=== PATIENT | female | born 1970 | race African-American/Black ===

== ENCOUNTER 2023-02-18 14:09 | Emergency (ER) | payer SELFPAY ==
--- NOTE | ~2023-02-18 | XR_ITS ---
EXAMINATION: XR chest 2V DATE: 02/18/2023 16:44 INDICATION: Shortness of breath, cough and congestion TECHNIQUE: PA and lateral views of the chest were obtained. COMPARISON: Chest radiograph dated 07/14/2021 FINDINGS: Calcified right lower lobe nodule consistent with old granulomatous disease. No other airspace opacit ies, pulmonary edema, pleural effusion or pneumothorax. The cardiomediastinal silhouette is normal. M ild thoracic dextrocurvature with mild spondylosis. IMPRESSION: 1. No acute cardiopulmonary disease. Reviewed, dictated and finalized at location A.
[2023-02-18 14:11] VITALS: BP 157/102; PULSE 79; RESP 18; TEMP 36.8; O2SAT 100
--- NOTE | 2023-02-18 14:14 | ECG_ITS ---
Measurements Intervals [place] Rate: 84 P: 59 CT: 145 QRS: 24 QRSD: 105 T: 42 QT: 365 QTc: 432 Interpretive Statements SINUS RHYTHM WITH SINUS ARRHYTHMIA POSSIBLE LEFT ATRIAL ENLARGEMENT INCOMPLETE RIGHT BUNDLE BRANCH BLOCK BASELINE ARTIFACT- I, II, III, AVR, AVL, AVF, V1-V3 BORDERLINE ECG NO PREVIOUS ECG AVAILABLE FOR COMPARISON Electronically Signed On 02-18-2023 16:05:15 CDT by Yuan mSith D.O.
--- NOTE | 2023-02-18 16:36 | ED.SOB ---
HPI - SOB/Dyspnea General Chief Complaint: Shortness of Breath/Dyspnea Stated Complaint: sob Time Seen by Provider: 02/18/23 16:21 History of Present Illness HPI Narrative: Patient is a 52-year-old female with a history of hypertension presenting with URI symptoms. Patient states that 2 days ago she had nasal congestion that is making it difficult to breathe. States that her symptoms improved for about a day but then she woke up this morning when she again had a lot of nasal congestion that was interfering with her ability to breathe. States that she has had a bit of a cough as well as nausea. Complains of diffuse body aches. Denies chest pain or shortness of breath. No leg swelling. No abdominal pain, dysuria, diarrhea, headache, fevers. Related Data Allergies Allergy/AdvReac Type Severity Reaction Status Date / Time No Known Allergies Allergy Verified 02/18/23 16:54 Review of Systems Review of Systems: All systems reviewed & are unremarkable except as noted in HPI and below Exam Narrative: GENERAL: Well-appearing, well-nourished, and in no acute distress. HEAD: Normocephalic, atraumatic. EYES: PERRLA and EOMI. ENT: Nares clear, no rhinorrhea or epistaxis. Mucous membranes moist. NECK: Supple. CHEST: Clear to auscultation. No respiratory distress. HEART: Regular rate and rhythm. No murmur heard. Normal peripheral pulses. ABDOMEN: Soft, nontender, nondistended, normal active bowel sounds. EXTREMITIES: Normal range of motion. No edema. SKIN: Warm, dry, no rash. NEURO: No focal deficits. Alert and oriented x3. PSYCH: Normal mood and affect. Course Vital Signs Vital signs: Vital Signs Temperature 98.3 F 02/18/23 14:11 Pulse Rate 79 02/18/23 14:11 Respiratory Rate 18 02/18/23 14:11 Blood Pressure 157/102 H 02/18/23 14:11 Pulse Oximetry 100 02/18/23 14:11 Oxygen Delivery Room Air 02/18/23 14:11 Temperature 98.1 F 02/18/23 16:57 Pulse Rate 67 02/18/23 19:22 Respiratory Rate 12 02/18/23 19:22 Blood Pressure 169/96 H 02/18/23 19:22 Pulse Oximetry 97 02/18/23 19:22 Oxygen Delivery Room Air 02/18/23 16:58 MDM - SOB/Dyspnea MDM Narrative Medical decision making narrative: Patient is a 52-year-old female presenting with cough, nasal congestion, shortness of breath. Patient is hypertensive, otherwise vitals are within normal limits. Saturating well on room air. Blood work with leukopenia. Patient is positive for COVID-19. Chest x-ray without evidence of pneumonia or other acute abnormalities. Patient resting comfortably on reevaluation. Feel she is safe for outpatient management. Discussed appropriate supportive care. Recommended PCP follow-up. Patient voiced understanding and is agreeable with plan. Discharged in stable condition. Differential Diagnosis Differential diagnosis: Likely community acquired pneumonia and other (Viral URI, COVID-19, nasal congestion) Medical Records Attestation: I reviewed the patient's medical records. Lab Data Attestation: I reviewed the patient's lab results. 02/18/23 16:54 02/18/23 16:54 Labs: Lab Results 02/18/23 Range/Units 16:54 WBC 2.2 L (4.5-10.0) K/mm3 RBC 5.33 (4.2-5.4) M/mm3 Hgb 14.2 (12.0-15.0) g/dL Hct 43.7 (37.0-47.0) % MCV 82.0 (80-100) fl MCH 26.6 (26-34) pg MCHC 32.5 (32-36) g/dl RDW 13.2 (11.5-14.5) % Plt Count 247 (150-375) k/mm3 MPV 10.4 (7.4-10.4) fl Immature Gran % (Auto) 0.0 (0-0.5) % Neut % (Auto) 44.5 L (45.5-73.1) % Lymph % (Auto) 42.3 (18.3-44.2) % [place] % (Auto) 12.2 H (2.6-8.5) % Eos % (Auto) 0.5 (0-4.4) % Baso % (Auto) 0.5 (0.2-1.2) % Lymph # (Auto) 0.94 (0.9-3.2) K/mm3 [place] # (Auto) 0.3 (0.1-0.6) K/mm3 Eos # (Auto) 0.0 (0-0.3) K/mm3 Baso # (Auto) 0.0 (0.0-0.1) K/mm3 Abs Immat Gran (auto) 0.00 (0.00-0.031) K/mm3 Absolute Neuts (auto) 1.0 L (1.3-6.7) K/mm3 Absolute Nucleated RBC 0.0 (0.0-0.
[2023-02-18 16:53] VITALS: PULSE 64
[2023-02-18] MEDS: SODIUM CHLORIDE 0.9% IV 1,000 ML 999 ML IV CONT (16:54)
[2023-02-18 16:57] VITALS: BP 175/106; PULSE 66; RESP 13; TEMP 36.7; O2SAT 100
[2023-02-18 16:58] VITALS: O2SAT 100
[2023-02-18 17:00] LABS: Basophils Percent Auto 0.5 % (0.2-1.2); Eosinophils Percent Auto 0.5 % (0-4.4); Hematocrit 43.7 % (37.0-47.0); Hemoglobin 14.2 g/dL (12.0-15.0); Lymphocytes Absolute Auto 0.94 K/mm3 (0.9-3.2); Lymphocytes Percent Auto 42.3 % (18.3-44.2); Mean Corpuscular HGB Conc 32.5 g/dl (32-36); Mean Corpuscular Hemoglobin 26.6 pg (26-34); Mean Platelet Volume 10.4 fl (7.4-10.4); Monocytes Absolute Auto 0.3 K/mm3 (0.1-0.6); Monocytes Percent Auto 12.2 % (2.6-8.5); Neutrophils Percent Auto 44.5 % (45.5-73.1); Platelet Count Result 247 k/mm3 (150-375); Red Blood Count 5.33 M/mm3 (4.2-5.4); Red Cell Distribution Width 13.2 % (11.5-14.5); White Blood Count 2.2 K/mm3 (4.5-10.0)
[2023-02-18 17:10] LABS: Anion Gap 4 mmol/L (8-16); Blood Urea Nitrogen 11 mg/dL (7-17); Carbon Dioxide 32 mmol/L (22-30); Chloride 100 mmol/L (98-107); Estimated CRCL calculation 65 ml/min; Estimated Glomerular Filt Rate 59; Glucose 96 mg/dL (65-110); Lipase 162 U/L (23-300); Potassium 3.8 mmol/L (3.4-5.0); Sodium 136 mmol/L (137-145)
[2023-02-18] MEDS: ONDANSETRON INJ 4 MG/2 ML VIAL IV PUSH (17:25)
[2023-02-18 17:36] LABS: Influenza A QL RT-PCR Negative (Negative); Influenza B QL RT-PCR Negative (Negative); RSV RNA, RT-PCR Negative (Negative); SARS-CoV-2 RNA PCR Positive (Negative)
[2023-02-18 18:35] VITALS: BP 179/101; PULSE 65; RESP 18; O2SAT 100
[2023-02-18 19:22] VITALS: BP 169/96; PULSE 67; RESP 12; O2SAT 97
== END 2023-02-18 19:22 | disposition home or self-care (01) ==
PROVIDERS: Emergency Provider Emergency Medicine; PCP Internal Medicine Infectious Disease
DX: U07.1 COVID-19 (principal)
CPT/HCPCS: 36415; 71046; 80048; 83690; 85025; 87637; 93005; 96361; 96374; 99284; J2405; J7030